=== PATIENT | male | born 2000 | race Hispanic/Latino ===

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

== ENCOUNTER 2023-08-10 06:48 | Emergency (ER) | payer OTHER ==
[~2023-08-10] VITALS: Ht 175.3 cm; Wt 63.5 kg
[~2023-08-10 06:48] MED LIST: DOXYCYCLINE HY100 MG PO; NORCO 5-325 TA1 EACH PO
[2023-08-10 09:48] VITALS: BP 111/68
== END 2023-08-10 09:45 | disposition home or self-care (01) ==
LOC: ED 06:48
DX: T50.901A Poisoning by unspecified drugs, medicaments and biological substances, accidental (unintentional), initial encounter (principal); F17.200 Nicotine dependence, unspecified, uncomplicated
CPT/HCPCS: 96374; 99284-25; J2310

== ENCOUNTER 2023-10-08 02:55 | Emergency (ER) | payer OTHER ==
[~2023-10-08] VITALS: Ht 175.3 cm; Wt 63.5 kg
[2023-10-08 03:40] VITALS: BP 132/79
== END 2023-10-08 03:40 | disposition home or self-care (01) ==
LOC: ED 02:55
DX: T69.8XXA Other specified effects of reduced temperature, initial encounter (principal); F17.200 Nicotine dependence, unspecified, uncomplicated; Z59.00 Homelessness unspecified
CPT/HCPCS: 99283